=== PATIENT | male | born 1945 | race Caucasian/White ===

== ENCOUNTER → 2019-01-01 | Emergency (ER) | payer OTHER ==
[~2019-01-01] VITALS: Ht 165.1 cm; Wt 72.6 kg
== END | disposition home or self-care (01) ==
LOC: ER 12:55
DX: K29.50 Unspecified chronic gastritis without bleeding (principal); K31.84 Gastroparesis; G20 Parkinson's disease

== ENCOUNTER 2021-05-31 16:10 | Inpatient (IN) | payer OTHER ==
[~2021-05-31] VITALS: Ht 170.2 cm; Wt 68.0 kg
[2021-05-31] MEDS ORDERED: SINEMET 25-1001 EACH (17:08)
[2021-05-31] MEDS ORDERED: PEPCID AC20 MG (17:08)
[2021-05-31] MEDS ORDERED: AMLODIPINE 5 MG (17:09)
[2021-05-31] MEDS ORDERED: COZAAR100 MG (17:09)
[2021-05-31] MEDS ORDERED: TOPROL XL100 M1 (17:10)
[2021-05-31] MEDS ORDERED: ARICEPT5 MG (17:10)
[2021-05-31] MEDS ORDERED: SIMVASTATIN 40 MG (17:10)
[2021-05-31] MEDS ORDERED: GLUMETZA1000 MG (17:11)
[2021-05-31] MEDS ORDERED: REGLAN 10 MG (17:11)
[2021-05-31] MEDS ORDERED: OMEPRAZOLE 40 MG. (17:12)
[2021-05-31] MEDS ORDERED: ADULT ASPIRIN81 MG (17:13)
[2021-05-31] MEDS ORDERED: VITAMINA D (17:14)
[2021-05-31] MEDS ORDERED: DEPAKOTE SPRIN125 MG (17:14)
[2021-06-04] MEDS ORDERED: OMEPRAZOLE40 MG (08:42)
[2021-06-04] MEDS ORDERED: VITAMIN D350 MCG (08:42)
[2021-06-04] MEDS ORDERED: AMLODIPINE BESYL5 MG (08:42)
[2021-06-04] MEDS ORDERED: SIMVASTATIN40 MG (08:43)
[2021-06-04] MEDS ORDERED: METOCLOPRAMIDE10 MG (08:46)
== END 2021-06-28 06:38 | disposition expired | DRG 177 ==
LOC: ER 16:10 → MEDJ 06-01 10:14 → MEDI 06-01 10:14 → MEDJ 06-05 10:17
PROVIDERS: Surgery; ADMIT Internal Medicine; ATTEND Internal Medicine
PROC: 4A033R1 Measurement of Arterial Saturation, Peripheral, Percutaneous Approach (ICD-10-PCS; 2021-05-31)
PROC: 02HV33Z Insertion of Infusion Device into Superior Vena Cava, Percutaneous Approach (ICD-10-PCS; 2021-06-01)
PROC: 0DH67UZ Insertion of Feeding Device into Stomach, Via Natural or Artificial Opening (ICD-10-PCS; 2021-06-01)
PROC: 3E0F7GC Introduction of Other Therapeutic Substance into Respiratory Tract, Via Natural or Artificial Opening (ICD-10-PCS; 2021-06-01)
PROC: 8E0ZXY6 Isolation (ICD-10-PCS; 2021-06-01)
PROC: B24BZZZ Ultrasonography of Heart with Aorta (ICD-10-PCS; 2021-06-01)
PROC: BW40ZZZ Ultrasonography of Abdomen (ICD-10-PCS; 2021-06-01)
PROC: BW24ZZZ Computerized Tomography (CT Scan) of Chest and Abdomen (ICD-10-PCS; 2021-06-01)
PROC: 4A12X4Z Monitoring of Cardiac Electrical Activity, External Approach (ICD-10-PCS; 2021-06-14)
PROC: 3E0G76Z Introduction of Nutritional Substance into Upper GI, Via Natural or Artificial Opening (ICD-10-PCS; 2021-06-26)
PROC: 0DH64UZ Insertion of Feeding Device into Stomach, Percutaneous Endoscopic Approach (ICD-10-PCS; principal; 2021-06-26 14:00)
DX: J69.0 Pneumonitis due to inhalation of food and vomit (principal); J96.01 Acute respiratory failure with hypoxia; T17.890A Other foreign object in other parts of respiratory tract causing asphyxiation, initial encounter; J47.1 Bronchiectasis with (acute) exacerbation; N39.0 Urinary tract infection, site not specified; I67.4 Hypertensive encephalopathy; X58.XXXA Exposure to other specified factors, initial encounter; Y93.89 Activity, other specified; Y92.89 Other specified places as the place of occurrence of the external cause; Y99.8 Other external cause status; E86.0 Dehydration; E87.8 Other disorders of electrolyte and fluid balance, not elsewhere classified; Z66 Do not resuscitate; K21.9 Gastro-esophageal reflux disease without esophagitis; R13.19 Other dysphagia; I10 Essential (primary) hypertension; B96.4 Proteus (mirabilis) (morganii) as the cause of diseases classified elsewhere; B96.29 Other Escherichia coli [E. coli] as the cause of diseases classified elsewhere; R31.0 Gross hematuria; R47.02 Dysphasia; G30.0 Alzheimer's disease with early onset; F02.80 Dementia in other diseases classified elsewhere, unspecified severity, without behavioral disturbance, psychotic disturbance, mood disturbance, and anxiety; E11.9 Type 2 diabetes mellitus without complications; Z20.822 Contact with and (suspected) exposure to COVID-19; Z79.4 Long term (current) use of insulin